=== PATIENT | female | born 1955 | race Caucasian/White ===

== ENCOUNTER 2017-02-21 19:04 | Emergency (ER) | payer OTHER ==
[2017-02-21 19:37] LABS: BASOPHILS 0.4 % (0-2); EOSINOPHILS 1.8 % (0-7); HEMOGLOBIN 13.5 g/dL (12-16); IMMATURE GRANULOCYTES 0.3 % (0-5); LYMPHOCYTES 20.4 % (15-50); MCH 32.6 pg (26.0-34.0); MCHC 33.8 g/dL (31.0-37.0); MCV 96.6 fL (80.0-100.0); MONOCYTES 9.5 % (2-11); NEUTROPHILS 67.6 % (40-80); PLATELET COUNT 264 10x3/uL (130-400); RBC 4.14 10x6/uL (4.00-5.40); RDW 12.5 % (11.5-14.5); WBC 7.9 10x3/uL (4.8-10.8)
[2017-02-21 20:05] LABS: ALBUMIN 4.3 g/dL (3.4-5.0); ALKALINE PHOSPHATASE 80 U/L (46-116); ALT (SGPT) 19 U/L (10-68); BILIRUBIN - TOTAL 0.54 mg/dL (0.2-1.3); CALC OSMOLALITY 279 mosm/kg (275-300); CALCIUM 9.8 mg/dL (8.5-10.1); CARBON DIOXIDE 23.5 mmol/L (21.0-32.0); CHLORIDE - SERUM 103 mmol/L (98-107); CREATININE - SERUM 0.8 mg/dL (0.6-1.3); GLUCOSE 131 mg/dL (74-106); POTASSIUM - SERUM 3.9 mmol/L (3.5-5.1); PROTEIN - SERUM 7.8 g/dL (6.4-8.2); SODIUM 138 mmol/L (136-145); UREA NITROGEN 17 mg/dL (7-18); eGFR NON AFRICAN AMERICAN 77 mL/min (90-120)
[2017-02-21 20:17] LABS: CHOL - HDL RATIO 3.4 ratio (2.3-4.1); CHOLESTEROL, TOTAL 249 mg/dL (0-200); CKMB 1.4 U/L (0.0-3.6); CREATINE KINASE 70 UL (21-215); HDL CHOLESTEROL 73 mg/dL (32-96); LDL CHOLESTEROL 158 mg/dL (0-100); LDL-HDL RATIO 2.2 ratio (1.5-3.5); TRIGLYCERIDE 92 mg/dL (30-200)
[2017-02-21 20:20] LABS: TROPONIN-I < 0.017 ng/mL (0.000-0.060)
== END 2017-02-21 22:16 | disposition home or self-care (01) ==
LOC: D.ER 19:04
PROVIDERS: Family Medicine
DX: R07.9 Chest pain, unspecified (principal); Z86.73 Personal history of transient ischemic attack (TIA), and cerebral infarction without residual deficits; H40.9 Unspecified glaucoma; I73.00 Raynaud's syndrome without gangrene

== ENCOUNTER 2017-02-25 11:29 | Outpatient (CLI) | payer OTHER ==
[~2017-02-25] VITALS: Ht 162.6 cm; Wt 61.4 kg
--- NOTE | ~2017-02-25 | HEMODYNAMI ---
PATIENT:ADEN NASCIMENTO MEDICAL RECORD: [id number] : 51 LOCATION:DHEIDY ADMISSION DATE: 02/25/17 Generatedon:02/25/201715:33 Patient name: ADEN NASCIMENTO Patient #: [id number] SSN: [id number] : 1955 Date of study: 02/25/2017 Page: Of Hemodynamic Procedure Report Patient Data Patient Demographics Procedure consent was obtained First Name: ADEN Gender: Female Last Name: AZAM : 1955 [facility] Initial: SAMANTHA Age: 61 year(s) Patient #: [id number] Race: Unknown SSN: [id number] Additional ID: [id number] Contact details Address: [address] [place] [address] State: [place] City: [facility] Zip code: [address] Past Medical History Allergies Allergen Reaction Date Comments Reported Other allergy 02/25/2017 Codeine, Demerol, Morphine, SUlfa, Zithromax Admission Admission Data Admission Date: 02/25/2017 Admission Time: 11:29 Arrival Date: 02/25/2017 Arrival Time: 0:00 Admit Source: Other Height (in.): 64 BSA: 1.68 (m2) Height (cm.): 162.56 BMI: 23.86 (kg/m2) Weight (lbs.): 139 Weight (kg.): 63.05 Lab Results Lab Result Date: 02/25/2017 Lab Result Time: 0:00 Biochemistry Name Units Result Min Max BUN mg/dl 13 --(--*-)-- 7 18 Creatinine mg/dl 0.8 --(-*--)-- 0.6 1.3 CBC Name Units Result Min Max Hemoglobin g/dl 13.8 --(*---)-- 13.5 17.5 Procedure Procedure Types Cath Procedure Diagnostic Procedure [facility] w/Coronaries PCI Procedure Coronary Stent Initial Miscellaneous Procedures Moderate Sedation up to 15 minutes Procedure Description Procedure Date Procedure Date: 02/25/2017 Procedure Start Time: 14:49 Procedure End Time: 15:17 Procedure Staff Name Function Rufino Beach MD Performing Physician Sridevi Roberson RT Scrub Angeli Lopez RN Nurse Lynda Padilla RT Monitor Procedure Data Cath Procedure Fluoroscopy Diagnostic fluoroscopy Total fluoroscopy Time: 8.7 time: 8.7 min min Diagnostic fluoroscopy Total fluoroscopy dose: 438 dose: 438 mGy mGy Contrast Material Contrast Material Type Amount (ml) Isovue 300 98 Entry Location Entry Primary Successful Side Size Upsize Upsize Entry Closure Vital ccessful Closure Location (Fr) 1 (Fr) 2 (Fr) Remarks Device Remarks Radial Right 5 Fr Mechanical TR Band artery Compression Estimated blood loss: 10 ml Diagnostic catheters Device Type Used For End Catheter Placement Diagnostic Terumo 5Fr Procedure Mora 110cm catheter Procedure Complications No complications Procedure Medications Medication Administration Route Dosage Oxygen NC 2 l/min Lidocaine 2% added to field 20 Heparin Flush Bag added to field 2 bags (1000units/500ml NS) 0.9% NaCl I.V. 100 ml/hr Versed I.V. 1 mg Fentanyl I.V. 50 mcg Benadryl I.V. 50 mg Versed I.V. 1 mg Fentanyl I.V. 50 mcg Radial Cocktail I.A. 1 syringe (Verapomil 2mg/Nitro 400mcg/Heparin 1500units) Versed I.V. 1 mg Fentanyl I.V. 50 mcg Lopressor I.V. 5 mg Heparin Bolus I.V. 4000 units Versed I.V. 1 mg Fentanyl I.V. 50 mcg Plavix P.O. 75 mg Hemodynamics Rest BSA: 1.68 (m2) HGB: 13.8 (g/dl) O2 Consumption: Estimated: 170.71 (ml/min) O2 Co nsumption indexed: Estimated:101.61 (ml/min/m) Heart Rate: 90 (bpm) Pressure Samples Time Site Value (mmHg) Purpose Heart Use Rate(bpm) 14:51 LV 151/9,15 Snapshot 90 Gradients Valve Time Site Site Mean SEP/DFP Peak To Heart Use 1 2 (mmHg) (sec/min) Peak Rate (mmHg) (bpm) Aortic 14:52 LV AO 91 Snapshots Pre Cath Intra NCS Post Cath Vital Signs Time Heart Resp SPO2 etCO2 [id number] NIBP (mmHg) Rhythm Pain Sedation Rate (ipm) (%) (mmHg) (mmHg) Status Level (bpm) 14:40:35 97 18 96 0 0 147/78(103) NSR 0 (11) 10(A) , No pain 14:45:14 80 19 96 0 0 142/74(116) NSR 0 (11) 10(A) , No pain 14:50:41 76 19 94 0 0 141/75(120) NSR 0 (11) 9(A) , No pain 15:00:48 77 18 95 0 0 142/79(113) NSR 0 (11) 9(A) , No pain 15:05:43 76 18 96 0 0 144/80(112) NSR 0 (11) 9(A) , No pain 15:13:14 77 16 95 0 0 136/81(109) NSR 0 (11) 10(A) , No pain Medications Time Medication Route Dose Verified Delivered Reason Note s Effectiveness by by 14:35:08 Oxygen NC 2 l/min Rufino Suh used for St. Jairo Lopez RN procedure 14:40:15 Lidocaine 2% added 20ml Rufino Oteroory for local to vial [facility] anesthetic field MD VELAZQUEZ 14:40:26 Heparin Flush added 2 bags Rufino Joy used for Bag to [facility] procedure (1000units/500ml field MD VELAZQUEZ NS) 14:41:43 0.9% NaCl I.V. 100 Rufino Suh used for ml/hr [facility]. Jairo causey MD 14:41:58 Benadryl I.V. 50 mg Rufino Suh used for [facility]. Jairo causey MD 14:47:03 Versed I.V. 1 mg Rufino Lancasterie for sedation St. Jairo Lopez RN, MD 14:47:12 Fentanyl I.V. 50 mcg Rufino Lancasterie for sedation St. Jairo Lopez RN, MD 14:50:02 Versed I.V. 1 mg Rufino Lancasterie for sedation St. Jairo Lopez RN, MD 14:50:07 Fentanyl I.V. 50 mcg Rufino Lancasterie for sedation St. Jairo Lopez RN, MD 14:53:17 Radial Cocktail I.A. 1 Rufino Joy for (Verapomil syringe [facility] vasodilation 2mg/Nitro MD VELAZQUEZ 400mcg/Heparin 1500units) 14:57:35 Heparin Bolus I.V. 4000 Rufino Lancasterie for veri fied units St. Jairo Lopez RN anticoagulation with dr MD mason 14:59:23 Versed I.V. 1 mg Rufino Buffie for sedation St. Jairo Lopez RN, MD 14:59:26 Fentanyl I.V. 50 mcg Rufino Lancasterie for sedation St. Jairo Lopez RN, MD 15:02:35 Lopressor I.V. 5 mg Rufino Lancasterie Per physician St. Jairo Lopez RN, MD 15:06:02 Fentanyl I.V. 50 mcg Rufino Lancasterie for sedation St. Jairo Lopez RN, MD 15:06:58 Versed I.V. 1 mg Rufino Lancasterie for sedation St. Jairo Lopez RN, MD 15:15:06 Plavix P.O. 75 mg Rufino Lancasterie for St. Jairo Lopez RN antiplatelet therapy Procedure Log Time Note 14:20:41 Patient Height : 64 cm 14:20:44 Patient Weight : 139 kg 14:22:14 Arrival Date: 02/25/2017 12:00:00 AM 14:22:18 Admit Source: Other 14:25:34 ACC Patient presents with Stable Angina CCS Anginal Class 2--Slight limitation of ordinary activity. 14:25:38 Diagnostic Cath status Elective 14:25:41 Angeli Lopez RN sent for patient. Start room use. 14:26:03 Time tracking: Regular hours 14:26:09 Plan of Care:Hemodynamics will remain stable., Cardiac rhythm will remain stable., Comfort level will be maintained., Respiratory function will remain adequate., Patient/ family verbilizes understanding of procedure., Procedure tolerated without complication., Recovers from procedure without complications.. 14:26:16 Patient received from Pre/Post Procedure Room to CCL 1 Alert and oriented. Tansferred to table in Supine position. 14:26:19 Warm blankets applied, and yessenia hugger turned on for patient comfort. 14:26:20 Correct patient and procedure confirmed by team. 14:26:22 Signed procedure consent form obtained from patient. 14:26:30 H&P Date Dictated: 02/24/2017 Within 30 days and on chart., H&P Addendum completed by physician on day of procedure. (MUST COMPLETE FOR ALL OUTPATIENTS). 14:26:34 Pre-procedure instructions explained to patient. 14:26:35 Family in waiting room. 14:26:38 Patient NPO since Midnight. 14:27:15 Patient allergic to Other allergyCodeine, Demerol, Morphine, SUlfa, Zithromax 14:27:20 Is the patient allergic to Iodine/contrast media? No. 14:35:08 Oxygen 2 l/min NC was administered by Angeli Lopez RN; used for procedure; 14:36:07 Snore? Unknown 14:36:08 Sleep apnea? No 14:36:20 Is patient on blood thinner?No 14:36:26 Patient diabetic? No. 14:36:33 Patient pain scale 0/10 ?. 14:36:39 IV patent on arrival in left forearm with 0.9% NaCl at [facility]. 14:37:16 Lab Result : BUN 13 mg/dl 14:37:17 Lab Result : Creatinine 0.8 mg/dl 14:37:17 Lab Result : Hemoglobin 13.8 g/dl 14:37:21 Lab results completed and on chart. 14:37:26 Right Radial & Right Groin area was prepped with chlora-prep and draped in sterile fashion 14:37:28 Alarms reviewed by R. N. 14:37:29 Sharps counted by scrub and verified by R.N. 14:37:29 Physician paged 14:37:30 Physician arrived 14:37:31 --------ALL STOP TIME OUT------ 14:37:32 Final Timeout: patient, procedure, and site verified with staff and physician. All members of the team are in agreement. 14:37:34 Right Radial & Right Groin site verified by team. 14:37:42 Sedation plan: IV Moderate Sedation Versed, Fentanyl 14:37:47 Physical assessment completed. ASA score P 2 - A patient with mild systemic disease as per Rufino Beach MD. 14:37:52 Use device set Radial Dx 14:37:53 Acist Syringe opened to sterile field. 14:37:53 Medline Cath Pack opened to sterile field. 14:37:54 Bag Decanter opened to sterile field. 14:37:54 Terumo 6Fr Slender Glidesheath opened to sterile field. 14:37:54 St Eduin 260cm J .035 wire opened to sterile field. 14:37:55 Acist Hand Control opened to sterile field. 14:37:55 Acist Manifold opened to sterile field. 14:37:56 Tegaderm 4 x 4 opened to sterile field. 14:37:56 MBrace Wrist Support opened to sterile field. 14:40:15 Lidocaine 2% 20ml vial added to field was administered by Rufino Beach MD; for local anesthetic; 14:40:26 Heparin Flush Bag (1000units/500ml NS) 2 bags added to field was administered by Rufino Beach MD; used for procedure; 14:41:43 0.9% NaCl 100 ml/hr I.V. was administered by Angeli Lopez RN; used for procedure; 14:41:58 Benadryl 50 mg I.V. was administered by Angeli Lopez RN; used for procedure; 14:46:35 Zero performed for pressure channel P1 14:47:03 Versed 1 mg I.V. was administered by Angeli Lopez RN; for sedation; 14:47:12 Fentanyl 50 mcg I.V. was administered by Angeli Lopez RN; for sedation; 14:49:26 Procedure started. 14:49:26 Full Disclosure recording started 14:49:37 Local anesthetic to right radial artery with Lidocaine 2% by Rufino Beach MD.INITIAL ACCESS ONLY 14:49:55 A 5 Fr sheath was inserted into the Right Radial artery 14:50:02 Versed 1 mg I.V. was administered by Angeli Lopez RN; for sedation; 14:50:07 Fentanyl 50 mcg I.V. was administered by Angeli Lopez RN; for sedation; 14:50:56 A Diagnostic The Personal Beeo 5Fr Mora 110cm catheter was advanced over the wire and used for Procedure. 14:51:05 LV angiography performed. 14:52:17 EF : 55 % 14:52:23 LCA angiography performed. 14:53:17 Radial Cocktail (Verapomil 2mg/Nitro 400mcg/Heparin 1500units) 1 syringe I.A. was administered by Rufino Beach MD; for vasodilation; 14:53:26 RCA angiography performed. 14:55:31 Moore Whisper J 300cm 0.014 guide wire opened to sterile field. 14:55:31 [email or web address] BasixCompak Inflation Kit opened to sterile field. 14:55:32 SnappCloud Launcher 6Fr HS I guide catheter opened to sterile field. 14:56:04 Catheter removed. 14:56:06 Proceeding to intervention. 14:56:19 6 Fr HS1 guide catheter was inserted over the wire 14:56:28 Whisper wire advanced. 14:57:35 Heparin Bolus 4000 units I.V. was administered by Angeli Lopez RN; for anticoagulation; verified with dr mason 14:59:17 Wire removed. 14:59:23 Versed 1 mg I.V. was administered by Angeli Lopez RN; for sedation; 14:59:25 Rhodell Sci Choice PT Extra Support J 300cm .014 gu opened to sterile field. 14:59:26 Fentanyl 50 mcg I.V. was administered by Angeli Lopez RN; for sedation; 14:59:37 PT extra support wire advanced. 15:00:51 Inflation number: 1 A Rhodell Sci Whiteside 3.0 X 15 balloon was prepped and advanced across the Mid RCA, then inflated to 12 MERYL for 0:26 (min:sec). 15:01:39 Inflation number: 2 The Rhodell Sci Whiteside 3.0 X 15 balloon was reinflated across the Mid RCA, to 12 MERYL for 0:32 (min:sec). 15:01:52 Balloon removed over the wire. 15:02:35 Lopressor 5 mg I.V. was administered by Angeli Lopez RN; Per physician; 15:06:02 Fentanyl 50 mcg I.V. was administered by Angeli Lopez RN; for sedation; 15:06:12 Stent removed. unable to cross lesion. 15:06:58 Versed 1 mg I.V. was administered by Angeli Lopez RN; for sedation; 15:08:10 Inflation number: 3 A Rhodell Sci Whiteside 3.5 X 15 balloon was prepped and advanced across the Mid RCA, then inflated to 10 MERYL for 0:14 (min:sec). 15:08:32 Inflation number: 4 The Rhodell Sci Whiteside 3.5 X 15 balloon was reinflated across the Mid RCA, to 10 MERYL for 0:15 (min:sec). 15:08:45 Balloon removed over the wire. 15:11:59 Inflation Number: 5 A Medtronic Resolute 3.0 X 22 stent was prepped and advanced across the Mid RCA. The stent was deployed at 16 MERYL for 0:22 (min:sec). 15:12:43 Terumo TR Band Standard opened to sterile field. 15:12:51 Wire removed. 15:13:00 Guide catheter removed. 15:13:21 Sheath removed intact; hemostasis achieved with Mechanical Compression to the Right Radial artery. 15:13:24 Procedure ended.(Physican Out) 15:13:39 Fluoroscopy time 08.70 minutes. 15:13:47 Fluoroscopy dose: 438 mGy 15:13:47 Flurop Dose total: 438 15:14:18 Contrast amount:Isovue 300 98ml. 15:14:24 Sharps counted by scrub and verified by R.N. 15:14:31 TR band inflated with 10cc of air. 15:14:34 Insertion/operative site no bleeding no hematoma. 15:14:37 Post Procedure Pulses reassessed and unchanged 15:14:42 Post-procedure physical assessment completed. ASA score P 2 - A patient with mild systemic disease as per Rufino Beach MD. 15:14:46 Post procedure rhythm: unchanged. 15:14:51 Estimated blood loss: 10 ml 15:14:53 Post procedure instruction explained to patient.Patient verbalizes understanding. 15:15:02 Procedure type changed to Cath procedure, Diagnostic procedure, LHC, LHC w/Coronaries, PCI procedure, Coronary Stent Initial, Miscellaneous Procedures, Moderate Sedation up to 15 minutes 15:15:04 Procedure and supply charges have been captured, reviewed, submitted and are correct. 15:15:06 Plavix 75 mg P.O. was administered by Angeli Lopez RN; for antiplatelet therapy; 15:16:24 Procedure Complication : No complications 15:16:44 See physician's report for complete and final results. 15:17:32 Report given to Pre/Post Procedure Room. 15:17:36 Patient transfered to Pre/Post Procedure Room with Stretcher. 15:17:41 Procedure ended. 15:17:41 Full Disclosure recording stopped 15:17:42 End room use (Document Last) Intervention Summary Intervention Notes Time ActionType Lesion and Equipment Action# Pressure Duration Attributes Used 15:00:51 Inflate Mid RCA Rhodell 1 12 00:26 balloon Sci Whiteside 3.0 X 15 balloon 15:01:39 Reinflate Mid RCA Rhodell 2 12 00:32 balloon Sci Whiteside 3.0 X 15 balloon 15:08:10 Inflate Mid RCA Rhodell 3 10 00:14 balloon Sci Whiteside 3.5 X 15 balloon 15:08:32 Reinflate Mid RCA Rhodell 4 10 00:15 balloon Sci Whiteside 3.5 X 15 balloon 15:11:59 Place stent Mid RCA Medtronic 5 16 00:22 Resolute 3.0 X 22 stent Device Usage Item Name Manufacture Quantity Catalog Number Hospital Part Current Mini mal Lot# / Charge Number Stock Stock Serial# Code Acist Acist 1 [id number] 20 Syringe Medical Systems Inc Medline Cardinal 1 [id number] 5 Cath Pack Health Bag Microtek 1 [id number] 036899 5 Decanter Medical Inc. Terumo 6Fr Terumo 1 [id number] [address] Edu[address] St Eduin 1 [id number] 446761 30 260cm J .035 wire Acist Hand Acist 1 42407 195618 5 Control Medical Systems Inc Acist Acist 1 47237 460211 5 Manifold Medical Systems Inc Tegaderm 4 3M 1 [id number] 313096 5 x 4 MBrace Advanced 1 [id number] 166626 5 Wrist Vascular Support Dynamics Diagnostic Terumo 1 [id number] 386578 5 Terumo 5Fr Mora 110cm catheter Moore Moore 1 [id number] 859438 5 Whisper J Vascular 300cm 0.014 guide wire Merit Merit 1 [id number] 266909 15 [facility] Medical Inflation Kit Medtronic Medtronic 1 [id number] 1 Launcher 6Fr HS I guide catheter Rhodell Sci Rhodell 1 [id number] 097016 5 Choice PT Scientific Extra Support J 300cm .014 gu Rhodell Sci Rhodell 1 [id number] 462658 1 [id number] Whiteside Scientific 3.0 X 15 balloon Rhodell Sci Rhodell 1 [id number] 107720 1 [id number] Whiteside Scientific 3.5 X 15 balloon Medtronic Medtronic 1 [id number] 724528 2 [id number] Resolute 3.0 X 22 stent Terumo TR Terumo 1 [id number] [id number] 40 Band Standard Signature Audit [place] Stage Time Signature Unsigned Intra-Procedure 02/25/2017 Lynda Padilla 3:33:25 PM RT(R) Signatures Monitor : Lynda Padilla Signature : RT Date : Time : [address] [place] [address]
[2017-02-25 12:19] VITALS: BP 149/77; Ht 162.6 cm; Wt 61.4 kg
[2017-02-25] MEDS ORDERED: PLAVIX75 MG PO ×2 (12:26→12:32)
[2017-02-25] MEDS ORDERED: CELEXA40 MG PO (12:26)
[2017-02-25] MEDS ORDERED: LOPID600 MG PO (12:26)
[2017-02-25] MEDS ORDERED: VALIUM10 MG PO (12:27)
[2017-02-25] MEDS ORDERED: SYNTHROID100 MCG PO (12:27)
[2017-02-25] MEDS ORDERED: STOOL SOFTENER100 M1 PO (12:27)
[2017-02-25] MEDS ORDERED: CALCI-CHEW1 TAB.CHEW PO (12:28)
[2017-02-25] MEDS ORDERED: BAYER CHEWABLE81 MG PO (12:28)
[2017-02-25] MEDS ORDERED: VITAMIN D31000 UNIT PO (12:29)
[2017-02-25] MEDS ORDERED: FUROSEMIDE40 MG PO (12:29)
[2017-02-25] MEDS ORDERED: POTASSIUM99 M1 PO (12:30)
[2017-02-25] MEDS ORDERED: FLINTSTONE1 TAB.CHEW PO (12:30)
[2017-02-25] MEDS ORDERED: PRAVACHOL40 MG PO (12:31)
[2017-02-25] MEDS ORDERED: ZANTAC150 MG PO (12:31)
[2017-02-25] MEDS ORDERED: TRAVATAN Z2.5 ML EACH EYE (12:31)
[2017-02-25] MEDS ORDERED: LINZESS290 MCG PO (12:32)
[2017-02-25] MEDS ORDERED: ALPHAGAN P15 ML EACH EYE (12:32)
[2017-02-25 12:38] LABS: BASOPHILS 0.6 % (0-2); EOSINOPHILS 2.8 % (0-7); HEMATOCRIT 40.1 % (36.0-48.0); HEMOGLOBIN 13.8 g/dL (12-16); IMMATURE GRANULOCYTES 0.4 % (0-5); LYMPHOCYTES 17.4 % (15-50); MCH 32.5 pg (26.0-34.0); MCHC 34.4 g/dL (31.0-37.0); MCV 94.4 fL (80.0-100.0); MEAN PLATELET VOLUME 10.1 fL (7.4-10.4); MONOCYTES 11.3 % (2-11); NEUTROPHILS 67.5 % (40-80); PLATELET COUNT 252 10x3/uL (130-400); RBC 4.25 10x6/uL (4.00-5.40); RDW 12.3 % (11.5-14.5); WBC 7.2 10x3/uL (4.8-10.8)
[2017-02-25 12:47] LABS: CALC OSMOLALITY 281 mosm/kg (275-300); CALCIUM 9.6 mg/dL (8.5-10.1); CARBON DIOXIDE 25.8 mmol/L (21.0-32.0); CHLORIDE - SERUM 105 mmol/L (98-107); CREATININE - SERUM 0.8 mg/dL (0.6-1.3); GLUCOSE 80 mg/dL (74-106); POTASSIUM - SERUM 4.2 mmol/L (3.5-5.1); SODIUM 142 mmol/L (136-145); UREA NITROGEN 13 mg/dL (7-18); eGFR NON AFRICAN AMERICAN 77 mL/min (90-120)
--- NOTE | 2017-02-25 15:55 | NUR ---
TR BAND INTACT, CD, SANDWICH AND DIET COLA SERVED, DENIES CHEST PAIN, FAMILY AT SIDE.
--- NOTE | 2017-02-25 16:38 | NUR ---
RESTING, RIGHT WRIST WITH TR BAND INTACT, NO CHANGES NOTED
--- NOTE | 2017-02-25 19:40 | NUR ---
1942- IV D'C WITH CATH TIP INTACT, TR BAND OFF WITH BANDAID IN PLACE, BRACE APPLIED, WRITTEN AND VERBAL INSTRUCTIONS GIVEN TO PT AND SISTER- UNDERSTOOD. RIGHT WRIST CDI, NO BLEEDING AT SITE.
--- NOTE | 2017-02-25 19:55 | NUR ---
D'C HOME WITH FAMILY
--- NOTE | 2017-02-27 10:00 | OP ---
PATIENT NAME: ADEN NASCIMENTO MEDICAL RECORD: [id number] :51 LOCATION:D.CAT ADMISSION DATE: SURGEON: BENSON TRAORE MD DATE OF OPERATION: 02/25/2017 PROCEDURE: Left heart catheterization, selective coronary angiography, right radial approach. CATHETERS: [place] catheter, radial catheter. The procedure was tolerated and the patient returned to the edwards, sheath removed and TR band was placed. FINDINGS: Left ventriculography 30-degree DAVIS view: Normal wall motion, normal systolic function. CORONARY ANATOMY: Left main: Left main is free of disease. LAD: Free of disease in the diagonal system. CIRCUMFLEX: Free of disease in the marginal system. RIGHT CORONARY ARTERY: Dominant artery, gives rise to PDA and has had a tight 99% plus stenosis at the mid portion of this vessel. Using the indwelling sheath, a hockey stick guide catheter provided excellent guide catheter support followed by ____ 300 cm [place] ____ wire. Next, a 3.0 balloon was placed across the lesion and using the balloon as an exchange catheter, we exchanged out to a PT export wire. Next, 3.0 and 3.5 [place] 15 mm balloons were used for predeployment due to marked eccentric plaque. Finally, a 3.0 x 22 mm Resolute drug-eluting stent was inflated up to 14 atmospheres and 16 atmospheres for 45 seconds. Final injection shows excellent resolution 95% plus stenosis, no residual. EDI flow was 3 throughout the procedure. The patient was previously on Plavix, so heparin was used during the case. Sheath was closed with TR band. TRANSINT:[id number] Voice Confirmation ID: [id number] DOCUMENT ID: [id number] BENSON TRAORE MD at 1000 CC: [id number] DICTATION DATE: 02/25/17 1517 SWITCHBOARD OPERATOR RECEPTIONIST: 02/26/17 0056 DEP CLI 02/25/[address] [address]
== END 2017-02-25 19:55 | disposition home or self-care (01) ==
LOC: D.CATH 11:29
PROVIDERS: Internal Medicine Interventional Cardiology
DX: I25.119 Atherosclerotic heart disease of native coronary artery with unspecified angina pectoris (principal)

== ENCOUNTER 2017-09-19 16:22 | Inpatient (IN) | payer OTHER ==
[~2017-09-19] VITALS: Ht 154.9 cm; Wt 62.7 kg
[~2017-09-19 16:22] MED LIST: ALPHAGAN P15 ML EACH EYE; BAYER CHEWABLE81 MG PO; CALCI-CHEW1 TAB.CHEW PO; CELEXA40 MG PO; FLINTSTONE1 TAB.CHEW PO; FUROSEMIDE40 MG PO; LINZESS290 MCG PO; LOPID600 MG PO; PLAVIX75 MG PO; POTASSIUM99 M1 PO; PRAVACHOL40 MG PO; STOOL SOFTENER100 M1 PO; SYNTHROID100 MCG PO; TRAVATAN Z2.5 ML EACH EYE; VALIUM10 MG PO; VITAMIN D31000 UNIT PO; ZANTAC150 MG PO
[2017-09-19 18:06] LABS: BASOPHILS 0.1 % (0-2); EOSINOPHILS 0.1 % (0-7); HEMATOCRIT 30.2 % (36.0-48.0); HEMOGLOBIN 9.8 g/dL (12-16); IMMATURE GRANULOCYTES 0.2 % (0-5); LYMPHOCYTES 5.4 % (15-50); MCH 32.7 pg (26.0-34.0); MCHC 32.5 g/dL (31.0-37.0); MCV 100.7 fL (80.0-100.0); MEAN PLATELET VOLUME 9.6 fL (7.4-10.4); MONOCYTES 6.2 % (2-11); RDW 12.6 % (11.5-14.5); WBC 16.1 10x3/uL (4.8-10.8)
[2017-09-19 18:07] LABS: PLATELET COUNT 337 10x3/uL (130-400)
[2017-09-19 18:19] LABS: ALBUMIN 4.1 g/dL (3.4-5.0); ALKALINE PHOSPHATASE 83 U/L (46-116); ALT (SGPT) 16 U/L (10-68); BILIRUBIN - TOTAL 0.32 mg/dL (0.2-1.3); CALC OSMOLALITY 277 mosm/kg (275-300); CARBON DIOXIDE 22.8 mmol/L (21.0-32.0); CHLORIDE - SERUM 102 mmol/L (98-107); CREATININE - SERUM 0.8 mg/dL (0.6-1.3); GLUCOSE 116 mg/dL (74-106); POTASSIUM - SERUM 3.2 mmol/L (3.5-5.1); PROTEIN - SERUM 6.9 g/dL (6.4-8.2); SODIUM 138 mmol/L (136-145); UREA NITROGEN 16 mg/dL (7-18); eGFR NON AFRICAN AMERICAN 76 mL/min (90-120)
[2017-09-19 18:24] LABS: APTT 28.4 SECONDS (22.8-39.4); INR 0.93 (0.85-1.17); PROTIME 12.1 SECONDS (11.6-15.0)
[2017-09-20] VITALS (7 sets, daily range): BP systolic 102–144; BP diastolic 40–96; Ht 154.9 cm; Wt 62.7 kg
[2017-09-20 04:23] LABS: BASOPHILS 0.2 % (0-2); EOSINOPHILS 0.9 % (0-7); HEMOGLOBIN 8.9 g/dL (12-16); IMMATURE GRANULOCYTES 0.2 % (0-5); LYMPHOCYTES 12.9 % (15-50); MCH 32.7 pg (26.0-34.0); MCV 99.3 fL (80.0-100.0); MEAN PLATELET VOLUME 9.7 fL (7.4-10.4); MONOCYTES 11.4 % (2-11); NEUTROPHILS 74.4 % (40-80); PLATELET COUNT 338 10x3/uL (130-400); RBC 2.72 10x6/uL (4.00-5.40); RDW 12.6 % (11.5-14.5)
[2017-09-20 04:33] LABS: WBC 10.5 10x3/uL (4.8-10.8)
[2017-09-21 02:28] VITALS: BP 89/44
[2017-09-21 04:41] VITALS: BP 115/63
[2017-09-21 06:04] LABS: BASOPHILS 0.5 % (0-2); EOSINOPHILS 3.8 % (0-7); HEMATOCRIT 27.3 % (36.0-48.0); HEMOGLOBIN 8.6 g/dL (12-16); IMMATURE GRANULOCYTES 0.2 % (0-5); LYMPHOCYTES 24.5 % (15-50); MCHC 31.5 g/dL (31.0-37.0); MEAN PLATELET VOLUME 9.9 fL (7.4-10.4); PLATELET COUNT 320 10x3/uL (130-400); RBC 2.69 10x6/uL (4.00-5.40); RDW 12.6 % (11.5-14.5)
[2017-09-21 06:21] LABS: MCV 101.5 fL (80.0-100.0); WBC 5.6 10x3/uL (4.8-10.8)
[2017-09-21 06:45] LABS: ALBUMIN 3.2 g/dL (3.4-5.0); ALKALINE PHOSPHATASE 65 U/L (46-116); ALT (SGPT) 19 U/L (10-68); BILIRUBIN - TOTAL 0.24 mg/dL (0.2-1.3); CALCIUM 8.7 mg/dL (8.5-10.1); CHLORIDE - SERUM 109 mmol/L (98-107); CREATININE - SERUM 0.6 mg/dL (0.6-1.3); GLUCOSE 89 mg/dL (74-106); PROTEIN - SERUM 5.9 g/dL (6.4-8.2); SODIUM 145 mmol/L (136-145); eGFR NON AFRICAN AMERICAN > 90 mL/min (90-120)
[2017-09-21 06:48] LABS: CALC OSMOLALITY 285 mosm/kg (275-300); UREA NITROGEN 6 mg/dL (7-18)
[2017-09-21] MEDS ORDERED: ANUSOL-HC25 MG RC (07:03)
[2017-09-21] MEDS ORDERED: FLAGYL500 MG PO (07:04)
[2017-09-21 08:26] VITALS: BP 120/46
[2017-09-21 12:19] LABS: CALC OSMOLALITY 289 mosm/kg (275-300); CALCIUM 9.4 mg/dL (8.5-10.1); CARBON DIOXIDE 24.3 mmol/L (21.0-32.0); CHLORIDE - SERUM 108 mmol/L (98-107); CREATININE - SERUM 0.7 mg/dL (0.6-1.3); GLUCOSE 118 mg/dL (74-106); SODIUM 146 mmol/L (136-145); UREA NITROGEN 6 mg/dL (7-18); eGFR NON AFRICAN AMERICAN 89 mL/min (90-120)
[2017-09-21 12:20] LABS: POTASSIUM - SERUM 3.7 mmol/L (3.5-5.1)
[2017-09-21 12:27] VITALS: BP 131/61
== END 2017-09-21 13:37 | disposition home or self-care (01) | DRG 390 ==
LOC: D.ER 16:22 → OBSVTIME 20:43 → D.MS 20:43
PROVIDERS: Emergency Medicine; Family Medicine; Physician Assistant Medical
DX: K56.41 Fecal impaction (principal); K62.89 Other specified diseases of anus and rectum

== ENCOUNTER → 2018-08-25 17:37 | Outpatient (CLI) | payer MEDICARE ==
[2018-08-25 19:31] LABS: BASOPHILS 0.5 % (0-2); EOSINOPHILS 2.4 % (0-7); HEMATOCRIT 44.2 % (36.0-48.0); HEMOGLOBIN 15.5 g/dL (12-16); IMMATURE GRANULOCYTES 0.2 % (0-5); LYMPHOCYTES 15.9 % (15-50); MCH 34.7 pg (26.0-34.0); MCHC 35.1 g/dL (31.0-37.0); MCV 98.9 fL (80.0-100.0); MEAN PLATELET VOLUME 10.9 fL (7.4-10.4); MONOCYTES 12.2 % (2-11); NEUTROPHILS 68.8 % (40-80); PLATELET COUNT 300 10x3/uL (130-400); RBC 4.47 10x6/uL (4.00-5.40); RDW 12.8 % (11.5-14.5); WBC 8.4 10x3/uL (4.8-10.8)
[2018-08-25 19:56] LABS: CALC OSMOLALITY 273 mosm/kg (275-300); CALCIUM 9.7 mg/dL (8.5-10.1); CARBON DIOXIDE 22.4 mmol/L (21.0-32.0); CHLORIDE - SERUM 100 mmol/L (98-107); CHOLESTEROL, TOTAL 194 mg/dL (0-200); CREATININE - SERUM 0.5 mg/dL (0.6-1.3); GLUCOSE 83 mg/dL (74-106); HDL CHOLESTEROL 64 mg/dL (32-96); LDL CHOLESTEROL 115 mg/dL (0-100); LDL-HDL RATIO 1.8 ratio (1.5-3.5); POTASSIUM - SERUM 4.1 mmol/L (3.5-5.1); SODIUM 138 mmol/L (136-145); TRIGLYCERIDE 76 mg/dL (30-200); UREA NITROGEN 10 mg/dL (7-18); eGFR NON AFRICAN AMERICAN > 90 mL/min (90-120)
== END | disposition home or self-care (01) ==
LOC: D.LABREF 17:37
PROVIDERS: Internal Medicine Interventional Cardiology
DX: E78.5 Hyperlipidemia, unspecified (principal); R42 Dizziness and giddiness

== ENCOUNTER 2018-09-23 11:34 | Emergency (ER) | payer MEDICARE ==
[~2018-09-23] VITALS: Ht 154.9 cm; Wt 55.9 kg
[~2018-09-23 11:34] MED LIST changes: +ANUSOL-HC25 MG RC; +FLAGYL500 MG PO
[2018-09-23 11:35] VITALS: Ht 154.9 cm; Wt 55.9 kg
[2018-09-23] MEDS ORDERED: CELEBREX 100 M100 MG PO (13:55)
[2018-09-23 14:20] VITALS: BP 138/40
== END 2018-09-23 14:20 | disposition home or self-care (01) ==
LOC: D.ER 11:34
DX: S20.212A Contusion of left front wall of thorax, initial encounter (principal); W11.XXXA Fall on and from ladder, initial encounter; Y93.89 Activity, other specified; Y92.89 Other specified places as the place of occurrence of the external cause; F17.200 Nicotine dependence, unspecified, uncomplicated

== ENCOUNTER → 2019-02-22 09:23 | Outpatient (CLI) | payer MEDICARE ==
[2018-09-23 11:35] VITALS: BMI 23.3
[~2019-02-22 09:23] MED LIST changes: +CELEBREX 100 M100 MG PO
--- NOTE | 2019-02-27 09:55 | EC ---
PATIENT:ADEN NASCIMENTO DATE OF SERVICE: 02/22/19 SEX: F MEDICAL RECORD: [id number] DATE OF : [birth year] LOCATION:D.[facility] AGE OF PATIENT: 63 ADMISSION DATE: 02/22/19 REFERRING PHYSICIAN: INTERPRETING PHYSICIAN: BENSON TRAORE MD ECHOCARDIOGRAM REPORT ECHO CHARGES 4 ECHO COMPLETE Date: 02/22/19 CLINICAL DIAGNOSIS: CAD/ ASSESS EF AND VALVES ECHOCARDIOGRAPHIC MEASUREMENTS (adult normal given) AC root (d.<3.7cm) 3.3 cm LV Septum d (<1.2 cm> 1.2 cm Valve Excursion 1.6 cm LV Septum (systole) 1.4 cm Left Atria (s.<4.0cm> 2.9 cm LVPW d(<1.2cm) 1.4 cm RV (d.<2.3cm) 3.1 cm LVPW (sytole) 1.5 cm LV diastole(<5.6CM) 4.1 cm MV E-F(>70mm/sec) cm LV systole 2.2 cm LVOT Diameter 2.0 cm MV exc.(>10mm) 1.2 cm Est.ejection fraction (50-75%) % DOPPLER: LVIT cm/sec A 91.0 cm/sec E 53.0 cm/sec LA cm/sec RVSP 26 mmHg LVOT 100 cm/sec AOP1/2T m/s Asc. Ao 135 cm/sec RVOT 64 cm/sec RA cm/sec PA 100 cm/sec AV Gradient Peak 7.25 mmHg AV Mean 1.06 mmHg AV Area 2.5 cm MV Gradient Peak 4.31 mmHg MV Mean 1.73 mmHg MV Area cm COMMENTS: Business Objects Analyst: 2 JULIAN ALFARO It Solutions Architect: 3 Dr. Beach TAPE# PACS Pericardial Effusion N DATE OF SERVICE: Adequate 2D, color flow, spectral Doppler, and M-Mode. Borderline LVH. LV internal dimensions are normal. Wall motion is normal. EF is greater than or equal to 55%. Aortic valve is tricuspid. No evidence of stenosis by Doppler interrogation. Left atrium is normal. Mitral valve shows no prolapse. Trace MR. Right-sided chambers grossly normal. Trace TR. TRANSINT:[id number] Voice Confirmation ID: [id number] DOCUMENT ID: [id number] ECHOCARDIOGRAM REPORT [id number] NASCIMENTOADEN MCKEON GREGORY A MD at 0955 CC: [id number] DICTATION DATE: 02/24/1940 VACCINE KEY CUSTOMER LEADER: 02/24/19 1139 DEP CLI 02/22/19 [facility] [address] [place] [address]
== END | disposition home or self-care (01) ==
LOC: D.HCCARDIO 09:23
PROVIDERS: ATTEND Internal Medicine Interventional Cardiology
DX: I25.10 Atherosclerotic heart disease of native coronary artery without angina pectoris (principal)

== ENCOUNTER → 2020-03-12 11:27 | Outpatient (CLI) | payer MEDICARE, OTHER ==
[2018-09-23 11:35] VITALS: BMI 23.3
== END | disposition home or self-care (01) ==
LOC: D.HCCECHO 11:27
PROVIDERS: ATTEND Internal Medicine Cardiovascular Disease
DX: I25.10 Atherosclerotic heart disease of native coronary artery without angina pectoris (principal)